=== PATIENT | female | born 1955 | race Caucasian/White ===

== ENCOUNTER → 2019-09-28 08:02 | Day surgery (SDC) | payer OTHER ==
[~2019-09-28 08:02] MED LIST: Buffered Lidocaine 1% SYRIN* 1 ML/SYRINGE INTRADERM ONE; Bupivacaine 0.25% EPI 200,000* 30 ML SDV ONE; Dexamethasone IV* 4 MG/ML 1 ML (4 MG) ONE; DiMENhydriNATE IV* 50 MG/ML VIAL IV PUSH PRN; Glycopyrrolate IV* 0.2 MG/ML 1 ML VIAL ONE; Ketorolac INJ* 30 MG/ML 1 ML VIAL ONE; Lactated Ringers 1000 ML Bag* 1,000 ML IV SCH; Midazolam* 1 MG/ML 2 ML VIAL (2 MG) ONE; Naloxone* 0.4 MG/ML 1 ML VIAL IV PRN; Ondansetron INJ* 2 MG/ML VIAL ONE; Propofol* 10 MG/ML 20 ML BTL ONE; Rocuronium* 10 MG/ML VIAL ONE; ceFAZolin 2 GM PREMIX in ORs 2 GM/50 ML BAG ONE; fentaNYL* 50 MCG/ML 2 ML VIAL (100 MCG VIAL) ONE; oxyCODONE TAB* 5 MG TAB PO PRN; traMADol TAB* 50 MG ONE
[2019-09-28] MEDS: fentaNYL* 50 MCG/ML 2 ML VIAL (100 MCG VIAL) IV PRN ×4 (12:37→13:00)
[2019-09-28 12:50] VITALS: BP 165/70
--- NOTE | 2019-09-30 03:10 | OP ---
OPERATIVE NOTE: DATE OF OPERATION: 09/28/19 DATE OF : 55 SURGEON: Dr. Mika Moore. OFFICE AUDITOR: JALEN Durán A physician processing assistant was required for the length of procedure for assistance with patient positionin g, retraction, and closure. ANESTHESIOLOGIST: Dr. Natoin, a [facility] anesthesiologist. ANESTHESIA: General anesthesia, local anesthesia using Marcaine 0.25% with epinephrine, 10 cc. PRE-OP DIAGNOSES: 1. Left elbow medial epicondylitis. 2. History of open reduction internal fixation, left olecranon fracture, at outside [facility] 8. POST-OP DIAGNOSES: 1. Left elbow medial epicondylitis. 2. History of open reduction internal fixation, left olecranon fracture, at [facility] 8. OPERATIVE PROCEDURE: Left elbow open debridement medial epicondyle, flexor pronator tendon repair. [id number] TIME: 41 minutes. TOURNIQUET TIME: 48 minutes at 250 mmHg, left upper arm tourniquet. SPECIMEN: None. IMPLANTS: Arthrex SutureTak double loaded suture anchor. ANTIBIOTICS: Ancef 2 g IV. IV FLUIDS: See anesthesia note. ESTIMATED BLOOD LOSS: Minimal. COMPLICATIONS: None. INDICATIONS FOR PROCEDURE: The patient is a 64-year-old woman, who underwent olecranon surgery at an outside hospital a [id number] on 03/14/18. The patient came to me for a second opinion. Outsi de physicians had proposed medial epicondylitis surgery. The patient responded insufficiently to non operative management for this. The patient's complaints and exam were consistent with medial epicondylitis. I obtained an ultrasoun d study, which was read as showing significant thickening of the medial epicondyle tendon origin. Th e ultrasound was also used to demonstrate dynamically that the ulnar nerve sat in the cubital tunnel and was not subluxing or dislocating anteriorly. I discussed the risks and potential complications of surgery as well as postoperative recovery timeli ne and postoperative restrictions. The patient opted to move forward with surgery. I offered remova l of hardware, although the patient was uninterested in this. DESCRIPTION OF PROCEDURE: In preoperative holding, the patient signed a written consent. Operative extremity was marked in the preoperative holding. The patient was taken back to the operating room a nd kept supine. Sedated and intubated. Hand table applied. The left upper extremity had a tourniqu et applied and the left upper extremity was prepped and draped. Surgical time-out performed. Esmarc h was applied and the tourniquet was elevated to 250 mmHg. I made a long oblique incision of the ski n over the medial epicondyle. Dissected down to the fascial layer with spreading scissor dissection. I respected a clear branch of the medial antebrachial cutaneous nerve. I visualized and felt the m edial epicondyle through a range of motion and noted no subluxation or dislocation of the ulnar nerve . The medial epicondyle flexor origin did not look significantly hypertrophic at first. When I palpate d it, it did appear that there might be some undersurface tearing. Right in the center of the origin , we did feel some perhaps emptiness deep to the fascia where some undersurface tearing could be loca arvin, I performed a longitudinal incision in the flexor tendon mass. I dissected down to bone sharply . There was some barren bone without flexor origin. I debrided the bone with a curette and rongeur. I used the scratch test with a #15 blade to remove any poor quality tissue, which was minimal. I next placed a suture anchor after drilling. SutureTak double loaded suture anchor. I used a free needle to pass horizontal mattress stitches into the flexor pronator proximal tendon. This brought t endon nicely down to bone and widened the footprint that was intact. I used one of the pairs of sutu res a second time to drill a second horizontal mattress stitch bringing the 2 pieces of fascia togeth er that I had split longitudinally. I then closed the fascial layer with a watertight closure using locking stitches using Vicryl 0 suture. Irrigation. I performed some minimum of dissection to confirm that the ulnar nerve was located in the cubital jero dylan. This was given the history of a prior trauma and surgery to this left elbow, which can certainl y alter anatomy. I dissected down and was able to visualize the ulnar nerve positioned well within t he cubital tunnel throughout a range of motion. Closure of the subcutaneous layers of tissue with buried simple stitches using Vicryl 2-0 suture. Cl osure of the subcuticular layer of tissue with a running stitch using Monocryl 3-0 suture. Local ane sthesia was injected. Mastisol. Steri- Strips. 4x4. ABD, sterile Webril. Nonsterile Webril. Pos terior long-arm splint leaving the wrist free along with a short sugar-tong component, overwrapped carl th of them by Oneal bandages. A simple sling applied. The patient was awakened, extubated, and transf erred to the PACU. DISPOSITION: The patient will follow up approximately 7 days postoperatively. At that point, she wi ll be converted from her elbow splint to a wrist removable brace and she will start physical therapy. She was given tramadol as needed for pain control. [id number]/[facility] #: [id number]
== END | disposition home or self-care (01) ==
LOC: OR 08:02
PROVIDERS: ATTEND Orthopaedic Surgery
DX: M77.02 Medial epicondylitis, left elbow (principal); Z87.828 Personal history of other (healed) physical injury and trauma
CPT/HCPCS: A9270-GY; C1713; J0690; J1100; J1885; J2250; J2405; J2704; J3010